=== PATIENT | female | born 1975 | race Hispanic/Latino ===

== ENCOUNTER 2020-02-15 16:18 | Emergency (ER) | payer MEDICAID, OTHER ==
[2020-02-15] MEDS ORDERED: ACETAMINOPHEN EXTRA STRENGTH 500 MG TABLET ONE (16:57)
== END 2020-02-15 18:42 | disposition home or self-care (01) ==
LOC: EDH 16:18
DX: B34.9 Viral infection, unspecified (principal); Z20.828 Contact with and (suspected) exposure to other viral communicable diseases; I10 Essential (primary) hypertension; E78.5 Hyperlipidemia, unspecified
CPT/HCPCS: 36415; 71045; 81025; 87804 ×2; 87880; 99284; U0003